=== PATIENT | female | born 1965 | race Caucasian/White ===

== ENCOUNTER 2017-08-04 19:57 | Emergency (ER) | payer OTHER ==
[2017-08-04 20:03] VITALS: BP 142/97; PULSE 92; TEMP 98.4; BMI 30.7
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
[2017-08-04] MEDS ORDERED: ACETAMINOPHEN 325 MG TABLET (FP) PO ONE (21:30)
[2017-08-04] MEDS ORDERED: ACETAMINOPHEN 325 MG TABLET (FP) ONE (21:42)
== END 2017-08-04 23:04 | disposition home or self-care (01) ==
LOC: JER 19:57
DX: Z04.3 Encounter for examination and observation following other accident (principal); V43.52XA Car driver injured in collision with other type car in traffic accident, initial encounter; Y93.89 Activity, other specified; Y92.410 Unspecified street and highway as the place of occurrence of the external cause; I10 Essential (primary) hypertension; E07.9 Disorder of thyroid, unspecified; Z85.41 Personal history of malignant neoplasm of cervix uteri
CPT/HCPCS: 71101-TC; 99282-25